=== PATIENT | female | born 2000 | race Caucasian/White ===

== ENCOUNTER 2020-01-08 17:49 | Observation (INO) | payer OTHER, SELFPAY ==
[2020-01-08 18:27] VITALS: TEMP 36.6
[2020-01-08 18:32] VITALS: BP 108/69; PULSE 91
[2020-01-08 18:54] LABS: Add Urine Microscopic? YES; Amorphous Sediment Urine Few; Appearance Urine Clear (Clear); Bacteria Urine Trace /hpf; Bilirubin Urine Negative (Negative); Blood Urine Negative (Negative); Color Urine Yellow (Yellow); Glucose Urine UA Negative (Negative); Ketones Urine Negative (Negative); Leukocyte Esterase Ur 1+ LEU/UL (NEGATIVE); Mucus Urine Rare /lpf; Nitrate Urine Negative (Negative); Protein Urine Negative (Negative); Specific Grav Ur 1.021 (1.001-1.035); Squamous Epithelial Cell Urine Few /hpf (Few)
[2020-01-08 20:07] VITALS: BMI 25.0
--- NOTE | 2020-01-08 20:08 | OBADM ---
This patient, Maritza Dean, admitted to the OB room OB Post 116 for observation. Patient/family oriented to hospital policies and general routines including ID bracelet, bed and alarms, visiting hours, pain management, procedures, bathroom and other care routines, personal items, smoking policy, room service/diet, and visiting hours. Patient/Family are encouraged to report perceived risks to care and to ask questions if they do not understand what they are told or what they should do.
--- NOTE | 2020-01-11 07:43 | P.PNOB_ITS ---
OB - Triage/Final Diagnosis Visit Information Date of evaluation: 01/08/20 Reason for evaluation: threatened labor Evaluation Laboratory results: Laboratory Tests 01/08/20 18:43 Urine Color Yellow Urine Appearance Clear Urine pH 5.0 Ur Specific [place] 1.021 Urine Protein Negative Urine Glucose (UA) Negative Urine Ketones Negative Ur Blood (Man) Negative Urine Nitrate Negative Urine Bilirubin Negative Urine Urobilinogen 2.0 H Ur Leukocyte Esterase 1+ H Urine RBC 3-5 H Urine WBC 10-15 H Ur Squamous Epith Cells Few Amorphous Sediment Few H Urine Bacteria Trace Urine Mucus Rare
== END 2020-01-08 19:41 | disposition home or self-care (01) ==
PROVIDERS: Advanced Practice Midwife; Admitting Provider Obstetrics & Gynecology; PCP Nurse Practitioner Family; Visit Provider Obstetrics & Gynecology
DX: O47.9 False labor, unspecified (principal); Z3A.00 Weeks of gestation of pregnancy not specified
CPT/HCPCS: 81001; 87086; 87088; G0378; G0379

== ENCOUNTER 2020-03-04 06:42 | Inpatient (IN) | payer OTHER, SELFPAY ==
[2020-03-04] VITALS (140 sets, daily range): BP systolic 62–117; BP diastolic 34–86; PULSE 57–125; RESP 18; TEMP 36.3–36.8; O2SAT 98–100; BMI 26.9
[2020-03-04 07:41] LABS: Basophils Absolute Auto 0.1 K/mm3 (0.0-0.1); Basophils Percent Auto 0.5 % (0.2-1.2); Eosinophils Percent Auto 0.4 % (0-4.4); Hematocrit 28.5 % (37.0-47.0); Hemoglobin 8.5 g/dL (12.0-15.0); Immature Granulocyte Absolute 0.05 K/mm3 (0.00-0.031); Immature Granulocyte Percent A 0.5 % (0-0.5); Lymphocytes Absolute Auto 1.97 K/mm3 (0.9-3.2); Lymphocytes Percent Auto 21.6 % (18.3-44.2); Mean Corpuscular HGB Conc 29.8 g/dl (32-36); Mean Corpuscular Hemoglobin 20.9 pg (26-34); Mean Corpuscular Volume 70.2 fl (80-100); Mean Platelet Volume 9.8 fl (7.4-10.4); Monocytes Absolute Auto 0.6 K/mm3 (0.1-0.6); Neutrophils Absolute Auto 6.4 K/mm3 (1.3-6.7); Platelet Count Result 287 k/mm3 (150-375); Red Blood Count 4.06 M/mm3 (4.2-5.4); Red Cell Distribution Width 16.8 % (11.5-14.5); White Blood Count 9.1 K/mm3 (4.5-10.0)
--- NOTE | 2020-03-04 07:42 | LDADM ---
This patient, Maritza Dean, was admitted to Labor/Delivery/Recovery 107 on 03/04/20 at 06:42. Plans for labor, pain management and were discussed with patient. Patient/family oriented to hospital policies and general routines including ID bracelet, bed and alarms, visiting hours, pain management, procedures, bathroom and other care routines, personal items, smoking policy, room service/diet and guest tray routines, infant security routines, and visiting hours. Patient/Family are encouraged to report perceived risks to care and to ask questions if they do not understand what they are told or what they should do. See OBIX for further documentation.
--- NOTE | 2020-03-04 07:51 | WPDOBADMIT ---
Obstetrics - Admit Note Admission Note: record reviewed. No pertinent additions to the history and/or any subsequent changes in the physical findings that are not consistent with the expected course of the were found. Additions to the history and/or subsequent changes in the physical findings follow. 3.5cm, FHT category 1. Pitocin and AROM. GBs neg.
[2020-03-04] MEDS: OXYTOCIN 30 UNITS/NS 500 ML 30 UNITS/500 ML BAG IV CONT (07:55)
[2020-03-04] MEDS: LACTATED RINGERS 1,000 ML 125 ML IV CONT ×3 (07:55→12:49)
[2020-03-04 10:54] LABS: Rapid Plasma Reagin Non-Reactive (NonReactive)
--- NOTE | 2020-03-04 11:21 | WPDANESEPPF ---
Anes - Initial Pre Proc Eval Procedure: labor epidural Date/Time: 03/04/20 11:21 Surgeon: Radha Sandy MD Pre Op Diagnosis: labor pain Pre Op Diagnosis: Induction of Labor Patient Data Age: 19 Gender: F Height: 1.6 m Weight: 69.1 kg Last Vital Signs Temp 36.8 C 03/04/20 10:15 Pulse 78 03/04/20 11:00 BP 107/67 03/04/20 11:00 Pulse Ox 100 03/04/20 11:20 Allergies Allergy/AdvReac Type Severity Reaction Status Date / Time amoxicillin AdvReac Mild Diarrhea Verified 03/04/20 08:44 clavulanic acid AdvReac Mild Diarrhea Verified 03/04/20 07:10 [From Augmentin] POTASSIUM CLAVULANATE AdvReac Mild SEVERE Uncoded 03/04/20 07:11 DIARRHEA AND VOMITITNG Home Medications Medication Instructions Recorded Confirmed Type PNV no.[id number] 2 tablet PO DAILY 03/04/20 03/04/20 History [ Gummies] Laboratory Tests 03/04/20 03/04/20 03/04/20 07:21 07:21 07:21 WBC 9.1 K/mm3 K/mm3 (4.5-10.0) RBC 4.06 M/mm3 L M/mm3 (4.2-5.4) Hgb 8.5 g/dL L g/dL (12.0-15.0) Hct 28.5 % L % (37.0-47.0) MCV 70.2 fl L fl (80-100) MCH 20.9 pg L pg (26-34) MCHC 29.8 g/dl L g/dl (32-36) RDW 16.8 % H % (11.5-14.5) Plt Count 287 k/mm3 k/mm3 (150-375) MPV 9.8 fl fl (7.4-10.4) Immature Gran % (Auto) 0.5 % % (0-0.5) Neut % (Auto) 70.0 % % (45.5-73.1) Lymph % (Auto) 21.6 % % (18.3-44.2) [place] % (Auto) 7.0 % % (2.6-8.5) Eos % (Auto) 0.4 % % (0-4.4) Baso % (Auto) 0.5 % % (0.2-1.2) Lymph # (Auto) 1.97 K/mm3 K/mm3 (0.9-3.2) [place] # (Auto) 0.6 K/mm3 K/mm3 (0.1-0.6) Eos # (Auto) 0.0 K/mm3 K/mm3 (0-0.3) Baso # (Auto) 0.1 K/mm3 K/mm3 (0.0-0.1) Abs Immat Gran (auto) 0.05 K/mm3 H K/mm3 (0.00-0.031) Absolute Neuts (auto) 6.4 K/mm3 K/mm3 (1.3-6.7) Absolute Nucleated RBC 0.0 K/mm3 K/mm3 (0.0-0.012) Nucleated RBC % 0.0 % % (0.0-0.2) RPR Non-reactive (NonReactive) Blood Type A Positive Antibody Screen Negative Patient hx anesthesia problems: none Family hx anesthesia problems: none PMFSH Family History Family History (Updated 02/15/20 @ 14:38 by Yfn Bond RN) Father Diabetes mellitus Social History Social History (Updated 02/18/19 @ 11:28 by UCHE Phillips) Smoking status: Never smoker Substance use: never Gender identity (if verbalized by the patient): Female Spiritual care concerns: No Anes - Eval Final PreProcedure Day of Procedure 03/04/20 11:21 Patient weight: overweight ASA classification: II Anesthesia type and monitoring: regional epidural Informed Consent: The patient's anesthetic plan and its attendant risks and benefits were discussed with the patient/family/POA. Questions were solicited and answers provided to the satisfaction of the patient/family/POA.
[2020-03-04] MEDS: SODIUM CHLORIDE 0.9% IV 300 ML 600 ML I-UTERINE (15:23)
--- NOTE | 2020-03-04 15:56 | PM.OBPRVD ---
OB - Delivery Note Procedure Delivery date: 03/04/20 Procedure: Intrapartal events: None and Deceleration (variables in active labor) Induction method: AROM and per pitocin protocol Route of delivery: Laceration Description: None Specimen: No Estimated blood loss (mL): 300 Anesthesia type: Epidural Disposition: floor Complications: short cord, delayed clamping not possible. Narrative: With adequate expulsive efforts by the mother, the baby's head was delivered OA. The baby's anterior shoulder was delivered under the pubic symphysis without difficulty. The posterior shoulder and the rest of the baby delivered without difficulty. The infant was placed on the mothers chest and suctioned and stimulated. The cord was clamped and cut after 30 seconds. Mother and baby both stable. Baby Date of : 03/[birth year] Time of : 15:45 Weeks of gestation at delivery: 39 Infant gender: Female Weight (pounds): 7 Weight (ounces): 5 presentation: vertex position: Left Occiput Anterior Placenta delivery description: Spontaneous cord vessel description: 3 Vessels score one minute: 9 score five minutes: 9
[2020-03-04] MEDS: OXYTOCIN 30 UNITS/NS 500 ML 30 UNITS/500 ML BAG 125 UNITS IV CONT (16:21)
--- NOTE | 2020-03-04 19:15 | OBPPTRN ---
Patient transferred to post room # 285 via wheelchair. Support person and present. Oriented to unit, room, information board, rooming in, admission packet and security measures. Patient verbalizes understanding.
[2020-03-04] MEDS: BENZOCAINE 20% AER SPR (*SP) 56 GM CAN 1 SPRAY TOPICAL (19:29)
[2020-03-04] MEDS: WITCH HAZEL 40 PADS 1 PAD TOPICAL (19:29)
[2020-03-05 05:33] LABS: Hematocrit 26.6 % (37.0-47.0)
--- NOTE | 2020-03-05 07:58 | PM.OBPNVD ---
OB - PN: Subj Subjective Date/time seen: 03/05/20 07:58 Doing great! No pain, minimal bleeding. E/A/V. OB - PN: Obj Data Labs CBC & Chem 7: 03/05/20 04:51 Labs: Laboratory Results - last 24 hr 03/04/20 03/04/20 03/05/20 07:21 07:21 04:51 Hgb 8.0 L Hct 26.6 L RPR Non-reactive Blood Type A Positive Antibody Screen Negative OB - PN A/P Plan day: 1 Plan: routine care and discharge home Comments: home today. DC instructions given. Time Spent With Patient Time: Total time spent is greater than 50% in coordination of care (as documented) at patient's floor/unit and/or counseling patient: Time with patient: less than 15 minutes Exam Narrative: Exam Narrative: NAD abdomen soft, nontender, fundus firm below the umbilicus Extremities nontender, no edema
--- NOTE | 2020-03-05 08:00 | PC.NURSE ---
PT introductions made and plan of care discussed per post , pain management, daily care activities and bottle feeding. PT verbalized understanding of such care.
--- NOTE | 2020-03-05 08:04 | PM.DS ---
DS: Admitting Diagnosis Admitting Diagnosis Admitting Diagnosis: Induction of Labor DS: Discharge Diagnosis Discharge Diagnosis (1) , delivered: Code(s): O80 - Encounter for full-term uncomplicated delivery Status: Acute DS: Summary Time Spent with Patient Time attestation: Total time spent providing and/or coordinating discharge services: 15 min Exam Narrative: Exam Narrative: NAD abdomen soft, appropriately tender Ext non tender, no edema DS: Data Data Completed and Pending Labs on day of discharge: Labs from last 24 hours 03/05/20 03/04/20 03/04/20 04:51 07:21 07:21 Hgb 8.0 L Hct 26.6 L RPR Non-reactive Blood Type A Positive Antibody Screen Negative Discharge Plan Discharge Attending physician on discharge: Jse Crespo Discharging Clinician: Jes Crespo Anticipated Discharge Date/Time: 03/05/20 17:00 Patient Disposition: Home, Self-Care Activity: pelvic rest Diet: as tolerated Patient Instructions: Antibiotic Form Stand Alone Forms: General Discharge Information Follow-up/Referrals: Jes Crespo MD [Physician] - (4 weeks) Discharge Medications: Continued Gummies 400 mcg-35 mg- 25 mg-5 mg Tablet,Chewable 2 tablet PO DAILY RF: 0 Date of admission: 03/04/20 06:42 Primary Care Provider: ANASTACIOSANTOS Admitting Provider: Radha Sandy Attending physician on admission: Radha Sandy Condition: Stable
[2020-03-05 08:35] VITALS: BP 119/74; PULSE 88; RESP 16; TEMP 36.9; O2SAT 100
--- NOTE | 2020-03-05 09:56 | WPDANLDPN2 ---
Anes-Prog Note L&D Date/Time: 03/05/20 09:56 Comfortable throughout: labor and delivery Neuraxial method: epidural Epidural/Spinal procedure site: clean & non-tender Neuro status: Neuro function grossly intact. Cardiovascular status: normal Respiratory status: normal Airway patency: baseline Mental status: baseline Post-Op hydration status: normal Vital Signs: Last Vital Signs Temp 36.9 C 03/05/20 08:35 Pulse 88 03/05/20 08:35 Resp 16 03/05/20 08:35 BP 119/74 03/05/20 08:35 Pulse Ox 100 03/05/20 08:35 Pain score (VAS): 0 I/O: Intake & Output 03/04/20 03/05/20 03/05/20 23:59 07:59 15:59 Intake Total 2000 Output Total 173 Balance 1827 Post-procedural complaints: none Patient feedback: Patient satisfied with anesthetic care.
[2020-03-05] MEDS: DOCUSATE SODIUM 100 MG CAPSULE PO ×2 (10:09→17:44)
[2020-03-05] MEDS: ACETAMINOPHEN 325 MG TABLET 650 MG PO (10:10)
[2020-03-05] MEDS: IBUPROFEN 600 MG TABLET PO (10:11)
[2020-03-05 10:14] VITALS: PULSE 88; RESP 16; O2SAT 100
[2020-03-05] MEDS: DIBUCAINE 1% OINTMENT 30 GM TUBE 1 APPLIC TOPICAL (10:14)
[2020-03-05] MEDS: POLYSACCHARIDE IRON COMPLEX 150 MG CAPSULE PO ×2 (10:15→17:43)
[2020-03-07 09:51] VITALS: BP 110/71; PULSE 93; RESP 20; TEMP 36.7; O2SAT 100
== END 2020-03-05 19:56 | disposition home or self-care (01) | DRG 560 ==
LOC: ANHOB2 03-05 08:04 → ANHLDR 03-06 17:13 → ANHOB2 03-06 17:13
PROVIDERS: Admitting Provider Obstetrics & Gynecology; PCP Nurse Practitioner Family; Visit Provider Obstetrics & Gynecology
DX: O69.3XX0 Labor and delivery complicated by short cord, not applicable or unspecified (principal); O76 Abnormality in fetal heart rate and rhythm complicating labor and delivery; O32.2XX0 Maternal care for transverse and oblique lie, not applicable or unspecified; Z3A.39 39 weeks gestation of pregnancy; Z37.0 Single live birth
CPT/HCPCS: 36415; 85014; 85018; 85025; 86592; 86850; 86900; 86901; A9270; J2590; J2795; J7030; J7120